=== PATIENT | female | born 1975 | race Caucasian/White ===

== ENCOUNTER 2025-04-16 16:35 | Emergency (ER) | payer SELFPAY ==
[2025-04-16 16:40] VITALS: BP 97/66; PULSE 108; RESP 22; TEMP 36.8; O2SAT 92; BMI 26.5
--- OUTSIDE RECORDS SUMMARY | 2025-04-16 16:42 | XMS_ITS | Clinical Summary ---
Author Organization [facility] Address [address] [place]: Epic Prelude ADT [place] [address] Care Team Providers Care Shank Scourer Name Role Phone Christiano Chandra MD Primary Care Provider [phone] Allergies Active Allergy Reactions Criticality Noted Date Comments Diphenhydramine-Zinc Acetate Other (See Comments) 04/29/2017 really messes me up Nsaids (Non-Steroidal Anti-Inflammatory Drug) Hives High 04/29/2017 Penicillins Anaphylaxis High 04/29/2017 Tramadol Other (See Comments) 04/16/2021 seizure Medications HYDROcodone-acetam inophen (NORCO) 5-325 mg tabletIndications: Cervical spondylosis with radiculopathy Take 1 Tablet by mouth every 6 hours as needed for Pain, Severe. Max Daily Amount: 4 Tablets 15 Tablet 1 Active orphenadrine (NORFLEX) 100 mg Extended Release tablet Take 1 Tablet (100 mg) by mouth 2 times daily as needed for Spasm. 20 Tablet 1 Active lidocaine (Lidoderm) 5 % Adhesive Patch, Medicated Apply 1 Patch to affected area every 24 hours. 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 ABSTRACTION Provider, Abstract from Last 3 Months Social History Tobacco Use Types Packs/Day Years Used Date Smoking Tobacco: Every Day Cigarettes Smokeless Tobacco: Never Alcohol Use Standard Drinks/Week Comments No 0 (1 standard drink = 0.6 oz pur e alcohol) Comments No Sex and Gender Information Value Date Recorded Sex Assigned at Not on file 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 Gender Identity Not on file Sexual Orientation Not on file Last Filed Vital Signs Vital Sign Reading Time Taken Comments Blood Pressure 98/72 08/01/2021 12:08 AM CDT Pulse 76 08/01/2021 12:08 AM CDT Temperature 36.8 C (98.3 F) 07/31/2021 9:52 PM CDT Respiratory Rate 26 08/01/2021 12:08 AM CDT Oxygen Saturation 98% 08/01/2021 12:08 AM CDT Inhaled Oxygen Concentration - - Weight 53.8 kg (118 lb 9.6 oz) 07/31/2021 9:52 P M CDT Height 160 cm (5' 3 ) 07/31/2021 9:52 PM CDT Body Mass Index 21.01 07/31/2021 9:52 PM CDT Plan of Treatment Health Maintenance Due Date Last Done Comments DTAP/TDAP/TD VACCINES (1 - Tdap) 09/27/1994 HEPATITIS B VACCINES (1 of 3 - 19+ 3-dose series) 09/15 HPV/Cotest (21-29) 09/27/1996 CERVICAL CANCER SCREENING 09/27/2005 HPV/Cotest (30-65) 09/27/2005 PAP SMEAR 09/27/2005 BREAST CANCER SCREENING 2015 COLORECTAL SCREENING 09/27/2020 Colorectal Cancer Screening 09/27/2020 FIT-DNA Q 3 years 09/27/2020 FIT/FOBT Q 1 year 09/27/2020 Flex Sig/CT Colonography Q 5 years 09/27/2020 INFLUENZA VACCINE (#1) 2024 Care Teams Shank Scourer Relationship Specialty Start Date End Date Christiano Chandra MD [address] [place] [address] [place] [address] PCP - General Family Practice 08/01/21
--- OUTSIDE RECORDS SUMMARY | 2025-04-16 16:42 | XMS_ITS ---
Patient Summary 2.1 Created on: April 16, 2025 KARLENE CABALLERO : 1975 Sex: Female Author Organization Unknown Address [address] [place], [place] [id number] Care Team Providers Care Sfdc Solution Architect Name Role Phone MOIRA Holt Attending [phone] VIOLA Morris Primary [phone] Results TROPONIN-HS,I-STAT - Collect Date/Time: 03/18/2025 09:58 [facility] ID: [id number] [address] [place] [address], [phone] LOINC: Test Value Unit Reference Range Code Code System I-STAT hs-Tnl < 2.9 ng/L L=3.0 H=13.0 URINALYSIS W/MICRO - Collect Date/Time: 03/18/2025 08:55 [facility] ID: [id number] [address] [place] [address], [phone] LOINC: Test Value Unit Reference Range Code Code System SPEC SOURCE: Clean Catch COLOR Yellow NORMAL: Straw 5778-6 LOINC CLARITY Hazy NORMAL: Clear 79649-0 LOINC SPEC GRAVITY 1.01 1.005 - 1.020 pH 7. 5.5 - 7.5 GLUCOSE Negative NORMAL: Negative BILIRUBIN Negative NORMAL: Negative 63698-7 JHONATAN NC KETONE Negative NORMAL: Negative PROTEIN Negative NORMAL: Negative NITRITE Positive NORMAL: Negative BLOOD Negative NORMAL: Negative LEUK EST 500 NORMAL: Negative UROBILINOGEN 0.2 0.2 - 1.0 mg/dL WBC 10 - 20 NORMAL: None Seen 5821-4 LO INC RBC None See NORMAL: None Seen 30663-1 LO INC EPITHELIAL See Belo NORMAL: None Seen 5787-7 L OINC SQUAMOUS EPI Mod/lpf NORMAL: None Seen 95241-2 LOINC RENAL EPI None Seen NORMAL: None Seen 79813-3 LO INC TRANS EPI None Seen NORMAL: None Seen 96432-0 LO INC BACTERIA 2+/hpf NORMAL: None Seen 5769-5 LO INC MUCOUS None See NORMAL: None Seen 13372-3 LO INC YEAST None Seen 5822-2 LOINC CASTS Not Indicate 9842-6 LOINC CRYSTALS Not Indicate 68695-4 LOINC D-DIMER QNT - Collect Date/T salomón: 03/18/2025 08:27 [facility] ID: [id number] [address] [facility], [place], [phone] LOINC: 94759-5 Test Value Unit Reference Range Code Code System D-DIMER QUANT 1800 mg/dL L=190 H=500 CBC W/AUTO DIFF - Collect Da te/Time: 03/18/2025 08:27 [facility] ID: [id number] [address] [place], [place], [phone] LOINC: 51148-6 Test Value Unit Reference Range Code Code System WBC 6.5 K/uL L=4.8 H=11.0 6690-2 LOINC RBC 4.6 M/uL L=3.9 H=5.6 789-8 LOINC HEMOGLOBIN 12.9 g/dL L=12.0 H=16.0 718-7 LOINC HEMATOCRIT 40.1 % L=36.0 H=46.0 4544-3 LOINC MCV 87 fL L=82 H=98 787-2 LOINC MCH 28.1 pg L=26.0 H=34.0 785-6 LOINC MCHC 32.3 g/dL L=32.0 H=36.0 786-4 LOINC RDW 13.4 % L=12.0 H=15.0 788-0 LOINC PLATELETS 500 K/uL L=150 H=400 777-3 LOINC %NEUT 62 % L=45 H=70 770-8 LOINC %LYMPH 32 % L=20 H=45 736-9 LOINC %MONO 6 % L=4 H=12 5905-5 LOINC #NEUT 4.2 K/uL L=2.0 H=7.7 751-8 LOINC #LYMPH 2.0 K/uL L=1.0 H=4.0 731-0 LOINC #MONO 0.3 K/uL L=0.2 H=0.9 742-7 LOINC COMPREHENSIVE METABOLIC PANE L - Collect Date/Time: 03/18/2025 08:27 [facility] ID: [id number] [address] [place] [address], [place], [phone] LOINC: 84308-8 Test Value Unit Reference Range Code Code System SODIUM 139 mmol/L L=136 H=145 2951-2 LOINC POTASSIUM 3.7 mmol/L L=3.6 H=5.2 2823-3 LOINC CHLORIDE 102 mmol/L L=100 H=108 2075-0 LOINC CO2 29 mmol/L L=21 H=32 1963-8 LOINC ANION GAP 12 L=7 H=15 31567-7 LOINC GLUCOSE 117 mmol/L L=70 H=110 2345-7 LOINC BUN 10 mg/dL L=7 H=18 3094-0 LOINC CREATININE 0.92 mg/dL L=0.60 H=1.30 2160-0 LOINC AGE 49 yrs BUN/CREAT 10.9 L=0.0 H=13.8 3097-3 LOINC TOTAL PROTEIN 7.5 g/dL L=6.2 H=8.4 2885-2 LOIN C ALBUMIN 3.3 g/dL L=3.4 H=5.0 1751-7 LOINC GLOBULIN 4 g/dL 88179-1 LOINC A/G RATIO 0.8 1759-0 LOINC CALCIUM 9.1 mg/dL L=8.1 H=9.7 92985-7 LOINC TOTAL BILI 0.2 mg/dL L=0.0 H=1.0 1975-2 LOINC ALKALINE PHOS 69 U/L L=46 H=116 6768-6 LOINC SGOT/AST 17 U/L L=15 H=37 1920-8 LOINC SGPT/ALT 17 U/L L=12 H=78 1742-6 LOINC OSMOLALITY 288 mOsm/kg L=275 H=295 NON-AA GFR 69 mL/min 06521-3 LOINC AFR AMER GFR 83 mL/min 10069-3 LOINC XR CHEST 2 VIEWS - Completed : 03/18/2025 20:46 LOINC: Please see scanned 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 Code Code System Body Mass Index 25.75 kg/m2 03/18/2025 08:13 Initial 60241 -5 LOINC Systolic Blood Pressure 115 mm[Hg] 03/18/2025 08:13 Initial 8480- 6 LOINC Diastolic Blood Pressure 70 mm[Hg] 03/18/2025 08:13 Initial 8462- 4 INC Body Surface Area 1.75 m2 03/18/2025 08:13 Initial 3140- 1 LOINC Height 162.560 0 cm 64.00 in 03/18/2025 08:13 Initial 8302- 2 INC O2 Saturation 95 % 2024 08:13 Initial 36392 -5 INC Pulse 103.0 /min 03/18/2025 08:13 Initial 8867- 4 LOINC Respiration 16 /min 03/18/20 08:13 Initial 9279- 1 LOINC Temperature 36.4 Yany 97.5 F 03/18/20 08:13 Initial 8310- 5 INC Weight 68.04 kg 150.00 lbs 03/18/2025 08:13 Initial 63070 -7 [facility] Medications Medication Start Date End Date Route Frequency Dose Code Code System Medication Instructions Orders ENOXAPARIN (LOVENOX) 40 MG (0.4 ML) INJ 03/18/2025 03/18/2025 SUBCUTANEOUS OPTIONS X1 40 MG 144075 RxNorm 40 MG SUBCUTANEOUS OPTIONS ONCE SODIUM CHLORIDE 0.9% IV GRISELDA 1000 ML 03/18/2025 03/18/2025 INTRAVENOUS X1 125 ml/hr 1174507 RxNorm 125 ml/hr INTRAVENOUS ONE TIME ~~~SODIUM CHLORIDE 0.9% IV GRISELDA 1000 ML 1000 ML RxNorm Home Meds Albuterol Sulfate HFA 0.09MG/1Actuation Inhalation Suspension 12/11/2024 Unknown INHALATION FOUR TIMES A DAY 1 PUFF 8161586 RxNorm 1 PUFF INHALATION FOUR TIMES A DAY FOR COPD EXACERBATION Assessment You had the following problems:SHORTNESS OF BREATHCHEST PAIN Hospital Discharge Instructions Should you have any questions prior to discharge, please contact a member of your healthcare team. If you have left the hospital and have any questions, please contact your primary care physician. Reason For Referral No Data Found Problems Problem Start Date Resolved Date Status Code Code System SHORTNESS OF BREATH active 325936259 SNOMED-CT CHEST PAIN active 64992106 SNOMED-CT Allergies Allergy Substance Reaction Severity Start Date Concern Status Co de Code System PCN (penicillin) Active 4843770 SNOMED- CT STEROID Active NSAID Active 01337809 SNOMED-CT DROPERIDOL Active 3648 RxNorm TRAMADOL Active 78468 RxNorm No Known Drug Allergies Active 986604756 SNOMED-CT Plan of Treatment No Data Found Encounters Encounter Diagnosis Start Date Code Code Sys tem Pulmonary embolism 03/18/2025 69752961 SNOMED-CT
--- OUTSIDE RECORDS SUMMARY | 2025-04-16 16:42 | XMS_ITS ---
Patient Summary 2.1 Created on: April 16, 2025 KARLENE CABALLERO : 1975 Sex: Female Author Organization Unknown Address [address] [place], [place] [id number] Care Team Providers Care J2Ee Developer Name Role Phone MOIRA Holt Attending [phone] NONE Primary [phone] Results CBC W/AUTO DIFF - Collect Da te/Time: 12/11/2024 10:12 [facility] ID: [id number] [address] [place], [place], [phone] LOINC: 63702-5 Test Value Unit Reference Range Code Code System WBC 6.8 K/uL L=4.8 H=11.0 6690-2 LOINC RBC 4.8 M/uL L=3.9 H=5.6 789-8 LOINC HEMOGLOBIN 13.9 g/dL L=12.0 H=16.0 718-7 LOINC HEMATOCRIT 41.5 % L=36.0 H=46.0 4544-3 LOINC MCV 87 fL L=82 H=98 787-2 LOINC MCH 28.9 pg L=26.0 H=34.0 785-6 LOINC MCHC 33.5 g/dL L=32.0 H=36.0 786-4 LOINC RDW 13.2 % L=12.0 H=15.0 788-0 LOINC PLATELETS 244 K/uL L=150 H=400 777-3 LOINC %NEUT 66 % L=45 H=70 770-8 LOINC %LYMPH 27 % L=20 H=45 736-9 LOINC %MONO 7 % L=4 H=12 5905-5 LOINC #NEUT 4.6 K/uL L=2.0 H=7.7 751-8 LOINC #LYMPH 1.8 K/uL L=1.0 H=4.0 731-0 LOINC #MONO 0.4 K/uL L=0.2 H=0.9 742-7 LOINC COMPREHENSIVE METABOLIC PANE L - Collect Date/Time: 12/11/2024 10:12 [facility] ID: [id number] [address] [facility] [place], [phone] LOINC: 50778-5 Test Value Unit Reference Range Code Code System SODIUM 137 mmol/L L=136 H=145 2951-2 LOINC POTASSIUM 3.2 mmol/L L=3.6 H=5.2 2823-3 LOINC CHLORIDE 101 mmol/L L=100 H=108 2075-0 LOINC CO2 23 mmol/L L=21 H=32 1963-8 LOINC ANION GAP 16 L=7 H=15 52917-0 LOINC GLUCOSE 113 mmol/L L=70 H=110 2345-7 LOINC BUN 12 mg/dL L=7 H=18 3094-0 LOINC CREATININE 0.92 mg/dL L=0.60 H=1.30 2160-0 LOINC AGE 49 yrs BUN/CREAT 13.0 L=0.0 H=13.8 3097-3 LOINC TOTAL PROTEIN 7.4 g/dL L=6.2 H=8.4 2885-2 LOIN C ALBUMIN 3.4 g/dL L=3.4 H=5.0 1751-7 LOINC GLOBULIN 4 g/dL 17043-1 LOINC A/G RATIO 0.9 1759-0 LOINC CALCIUM 9.0 mg/dL L=8.1 H=9.7 20456-8 LOINC TOTAL BILI 0.1 mg/dL L=0.0 H=1.0 1975-2 LOINC ALKALINE PHOS 90 U/L L=46 H=116 6768-6 LOINC SGOT/AST 23 U/L L=15 H=37 1920-8 LOINC SGPT/ALT 23 U/L L=12 H=78 1742-6 LOINC OSMOLALITY 285 mOsm/kg L=275 H=295 NON-AA GFR 69 mL/min 89507-7 LOINC AFR AMER GFR 83 mL/min 48995-2 LOINC TROPONIN - Collect Date/Time : 12/11/2024 10:12 [facility] ID: [id number] [address] [place] [address] [place], [phone] LOINC: Test Value Unit Reference Range Code Code System TROPONIN I < 0.05 ng/mL L=0.00 H=0.06 22791-[address] THORAX WO/C - Completed: 12/11/2024 15:12 LOINC: Please see scanned in radiol ogy probate clerk.Dictating Initials: RF Transcribe Date: 12/12/24 08:12Transcribe Initials: KW Social History Type Status Start Date End Date Code Code Syst em Smoking History Current every day smoker 060865545 SNOMED-CT Vital Signs Vital Sign Value Unit [place] Value [place] Unit Date/Time Recent/Initial? Code Code System Body Mass Index 26.57 kg/m2 12/11/2024 09:10 Initial 27060 -5 LOINC Systolic Blood Pressure 116 mm[Hg] 12/11/2024 09:10 Initial 8480- 6 LOINC Diastolic Blood Pressure 67 mm[Hg] 12/11/2024 09:10 Initial 8462- 4 LOINC Body Surface Area 1.74 m2 12/11/2024 09:10 Initial 3140- 1 LOINC Height 160.020 0 cm 63.00 in 12/11/2024 09:10 Initial 8302- 2 LOINC O2 Saturation 98 % 2024 09:10 Initial 16434 -5 LOINC Pulse 124.0 /min 12/11/2024 09:10 Initial 8867- 4 LOINC Respiration 18 /min 12/12/19 09:10 Initial 9279- 1 LOINC Temperature 36.9 Yany 98.4 F 12/12/19 09:10 Initial 8310- 5 LOINC Weight 68.04 kg 150.00 lbs 12/11/2024 09:10 Initial 96481 -7 LOINC Medications Medication Start Date End Date Route Frequency Dose Code Code System Medication Instructions Home Meds Albuterol Sulfate HFA 0.09MG/1Actuation Inhalation Suspension 12/11/2024 Unknown INHALATION FOUR TIMES A DAY 1 PUFF 3137512 RxNorm 1 PUFF INHALATION FOUR TIMES A [...] Code Code System SHORTNESS OF BREATH active 437909823 SNOMED-CT CHEST PAIN active 99132353 SNOMED-CT Allergies Allergy Substance Reaction Severity Start Date Concern Status Co de Code System PCN (penicillin) Active 0567368 SNOMED- CT STEROID Active NSAID Active 37160850 SNOMED-CT DROPERIDOL Active 3648 RxNorm TRAMADOL Active 06983 RxNorm No Known Drug Allergies Active 611631337 SNOMED-CT Plan of Treatment No Data Found Encounters Encounter Diagnosis Start Date Code Code Sys tem Unspecified lump in the left breast, unspecified quadr ant 12/11/2024 SNOMED-CT
--- NOTE | 2025-04-16 16:44 | ECG_ITS ---
[facility]25[facility]16 Pat Name: Maame Green Department: Room: Gender: Female Process Improvement Manager: : 1975 Requested By: Sathya Frye Order Number: [id number] Yousif MD: Vianca Luevano M.D. Measurements Intervals [place] Rate: 104 P: 84 ID: [id number] QRS: 76 QRSD: 79 T: 90 QT: 332 QTc: 438 Interpretive Statements SINUS TACHYCARDIA NONSPECIFIC T-WAVE ABNORMALITY ABNORMAL RHYTHM ECG No previous ECG available for comparison Electronically Signed On 04-18-2025 20:10:55 DISTRIBUTION WAREHOUSE MANAGER by Vianca Luevano M.D. [email or web address]
--- NOTE | 2025-04-16 16:49 | XRR_ITS ---
PROCEDURE INFORMATION: Exam: XR Chest Exam date and time: 04/16/2025 5:04 PM Age: 49 years old Clinical indication: Shortness of breath; Prior surgery; Surgery date: <1 month; Surgery type: Port-a-cath; Left sided chest wall pain, nausea, vomiting, short of breath. Recent breast cancer diagnosis with mets. ; Additional info: SOB TECHNIQUE: Imaging protocol: Radiologic exam of the chest. Views: 1 view. COMPARISON: No relevant prior studies available. FINDINGS: Tubes, catheters and devices: Right chest port terminates at the SVC. Lungs: Relative lucency of the right hemithorax compared to the left. Pleural spaces: Unremarkable. No pleural effusion. No pneumothorax. Heart/Mediastinum: Unremarkable. No cardiomegaly. Bones/joints: Unremarkable. XR/XR chest 1V portable 50512 IMPRESSION: Hyperlucent right hemithorax. Differential is broad to include technical factors, chest wall abnormalities, asymmetric emphysema or other lung disease, possibly oligemia in the setting of PE. Consider further evaluation with chest CTA.
[2025-04-16 17:30] VITALS: BP 99/67; PULSE 83; O2SAT 91
--- NOTE | 2025-04-16 17:40 | ED_ITS ---
HPI - Chest Pain 2 General: Chief Complaint: Chest Pain Stated Complaint: cp, sob, had port in 4 days ago, n/v Time Seen by Provider: 04/16/25 17:22 History of Present Illness: Patient is a 49-year-old female with stage 3 triple negative breast cancer who presents with severe left axillary pain and breast pain described as 'like a knife going in' with radiation to the chest. Symptoms have been present all day and are unrelieved by ice, heat, or pain medications including Tylenol and her regular pain medications. She reports associated chest pain, shortness of breath, and vomiting (3-[address] to the hospital). Patient had a port placed on Thursday (3 days ago) and was seen in the ER on Thursday (1 day ago) for shortness of breath and port pain. At that time, she reports elevated D-dimer levels, but imaging did not reveal a blood clot. Today, the port is not painful, but she continues to have severe axillary pain and shortness of breath. She denies fever or cough. She is currently receiving cancer treatment in [place] but has not started chemotherapy. Related Data Previous Rx's ?Medication ?Instructions ?Recorded doxycycline hyclate 100 mg tablet 100 mg PO BID 7 days #14 tabs 04/16/25 Allergies Allergy/AdvReac Type Severity Reaction Status Date / Time gabapentin Allergy Unknown Verified 04/16/25 16:50 morphine Allergy Unknown Verified 04/16/25 16:50 NSAIDS (Non-Steroidal Allergy Unknown Verified 04/16/25 16:50 Anti-Inflamma Penicillins Allergy ALGY-Anaphy Verified 04/16/25 16:50 laxis tramadol Allergy Unknown Verified 04/16/25 16:50 Physical Exam 2 Const: GENERAL APPEARANCE: cooperative, anxious and ill appearing; not frail appearing HENMT: COMMON NORMALS: normocephalic, atraumatic and Normal external nose present HEAD & SCALP: normocephalic and atraumatic FACE & SINUS: normal facial exam and face symmetric NOSE: Normal external nose present Eye: COMMON NORMALS: Equal, round and reactive pupils present and EOMs intact bilaterally PUPIL: Yes Equal, round and reactive pupils present Neck/C-Spine: GENERAL: Yes trachea midline Chest: CHEST: Yes Symmetrical chest wall rise BREAST/AXILLA PALPATION: Yes abnormal palpation of the breast (hard, red, warm) and Yes axillary lymphadenopathy (large ) Details: central (deep) adenopathy Resp: COMMON NORMALS: normal respiratory effort, No retractions, No use of accessory muscles and clear to auscultation bilaterally AUSCULTATION: clear to auscultation bilaterally Cardio: COMMON NORMALS: regular rate and regular rhythm RATE: regular rate RHYTHM: regular rhythm GI: COMMON NORMALS: Normal to inspection, nondistended, normoactive bowel sounds present Extremity: COMMON NORMALS: no pedal edema Neuro: JUSTIN COMA SCALE: document GCS findings Justin coma scale eye opening: Spontaneous [place] coma scale verbal response: Orientated [place] coma scale motor response: Obey commands Justin coma scale total score: 15 S ENSORY EXAM: Yes extremities (intact) Psych: COMMON NORMALS: speech normal SPEECH: Yes normal speech Skin: COMMON NORMALS: no rashes or lesions noted GENERAL SKIN EXAM: no rashes or lesions noted Course 2 Vital Signs: Vital signs: Vital Signs Temperature 98.2 F 04/16/25 16:40 Pulse Rate 81 04/16/25 21:20 Respiratory Rate 22 H 04/16/25 16:40 Blood Pressure 94/64 04/16/25 21:20 Pulse Oximetry 95 04/16/25 21:20 Oxygen Delivery Me thod Room Air 04/16/25 16:40 MDM - Chest Pain Medical Decision Making 49-year-old female with a history of breast cancer. She has a very tender, indurated, hard left breast. She is experiencing left sided pain into her axilla. She had a CTA 2 days ago that was negative for PE. Her chest x-ray does not show any left sided abnormalities. Her CRP is 10. Her ESR is 22. Lactic Acid 1.5. troponin is undetectable. Her white blood cell count is 11. This is likely inflammatory mass status in the setting of left sided breast cancer . Cellulitis cannot be ruled out. He was treated with Vancomycin here. She will go home on Doxycycline. She is supposed to see her oncologist in the morning for potential chemotherapy. Further treatment will be deferred to them in the absence of any sepsis markers here. She knows she can return for any return of symptoms. Duragesic patch was placed on the patient for better pain control. She may still take her Oxycodone for breakthrough pain. Lab Data 04/16/25 18:15 04/16/25 18:15 Radiology Impressions Chest X-Ray 04/16/25 16:49 IMPRESSION: Hyperlucent right hemithorax. Differential is broad to include technical factors, chest wall abnormalities, asymmetric emphysema or other lung disease, possibly oligemia in the setting of PE. Consider further evaluation with chest CTA. Laboratory Results WBC 11.12 10^3/uL (3.29-11.43) 04/16/25 18:15 RBC 4.47 10^6/uL (3.85-5.65) 04/16/25 18:15 Hgb 12.00 g/dL (11.27-16.99) 04/16/25 18:15 Hct 38.3 % (36-47) 04/16/25 18:15 MCV 85.7 fl (85-98) 04/16/25 18:15 MCH 26.8 pg (27-33) L 04/16/25 18:15 MCHC 31.3 g/dL (30-55) 04/16/25 18:15 RDW 13.0 % (12.1-15.1) 04/16/25 18:15 Plt Count 448 10^3/cmm (157-399) H 04/16/25 18:15 MPV 9.3 fL (7.4-10.4) 04/16/25 18:15 Neut % (Auto) 74.6 % 04/16/25 18:15 Lymph % (Auto) 15.3 % 04/16/25 18:15 Cook % (Auto) 7.6 % 04/16/25 18:15 Eos % (Auto) 1.7 % 04/16/25 18:15 Baso % (Auto) 0.4 % 04/16/25 18:15 Neut # (Auto) 8.30 10^3/uL (1.8-7.7) H 04/16/25 18:15 Lymph # (Auto) 1.7 10^3/uL (0.8-4.8) 04/16/25 18:15 Cook # (Auto) 0.8 10^3/uL (0.2-0.9) 04/16/25 18:15 Eos # (Auto) 0.2 10^3/uL (0.0-0.8) 04/16/25 18:15 Baso # (Auto) 0.1 10^3/uL (0.0-0.1) 04/16/25 18:15 Nucleated RBC % (auto) 0 % 04/16/25 18:15 Nucleated RBCs # 0.0 /100WBC 04/16/25 18:15 ESR 22 mm/hr (0-15) H 04/16/25 18:15 PT 12.30 SECONDS (12.1-14.9) 04/16/25 18:15 INR 0.86 (0.8-1.2) 04/16/25 18:15 Sodium 141 mmol/L (136-145) 04/16/25 18:15 Potassium 4.6 mmol/L (3.5-5.1) 04/16/25 18:15 Chloride 104 mmol/L (98-107) 04/16/25 18:15 Carbon Dioxide 28 mmol/L (22-29) 04/16/25 18:15 Anion Gap 13.6 (5-19) 04/16/25 18:15 BUN 7 mg/dL (6-20) 04/16/25 18:15 Creatinine 0.7 mg/dL (0.5-0.9) 04/16/25 18:15 GFR Calculation 88.9 mL/min (90-130) L 04/16/25 18:15 Glucose 108 mg/dL (65-115) 04/16/25 18:15 Calculated Osmolality 291 mOsm/kg (285-295) 04/16/25 18:15 Lactic Acid 1.5 mmol/L (0.5-2.2) 04/16/25 18:15 Calcium 9.3 mg/dL (8.5-10.5) 04/16/25 18:15 Total Bilirubin 0.2 mg/dL (0.15-1.2) 04/16/25 18:15 AST 15 U/L (0-32) 04/16/25 18:15 ALT 13 U/L (0-33) 04/16/25 18:15 Alkaline Phosphatase 78 U/L (35-105) 04/16/25 18:15 Troponin T Baseline < 6 ng/L (0-10) 04/16/25 18:15 C-Reactive Protein 10.4 mg/L (0.0-4.9) H 04/16/25 18:15 Total Protein 6.3 g/dL (6.6-8.7) L 04/16/25 18:15 Albumin 3.9 g/dL (3.5-5.2) 04/16/25 18:15 Globulin 2.4 g/dL (1.3-4.6) 04/16/25 18:15 Lipase 12 U/L (13-60) L 04/16/25 18:15 All radiology interpretation(s) finalized by discharge EKG Data EKG 1: Interpretation: EKG time: 1644 Read 1649 Sinus tach 100 Normal axis. QTc 438. Intervals normal No ST changes. Discharge Plan Discharge Patient Disposition: Home Clinical Impression: Mastitis, Breast cancer Condition: Stable Prescriptions: New doxycycline hyclate 100 mg tablet 100 mg PO BID 7 Days Qty: 14 0RF Discharge Orders: Discharge ED (Routine); Ordered 04/16/25 Ordered By: Howard Vivar Patient Instructions: Mastitis (ED), Opioid Safety, Pain Management, Patient Portal & [place] Instructions Activity Restrictions/Additional Instructions: Antibiotic coverage as directed. Wear your Durogesic patch for the next 3 days. This should provide some baseline pain control. You may continue to take your oxycodone as needed for breakthrough pain. Return for problems. Follow-up with your oncologist as scheduled tomorrow. Print Language: Hungarian Coding Level of Care Code ED Legal Compliance Officer for [facility] Heart Score HEART Score Components History: Slightly Suspicous EKG: Normal Age: 45-64 yrs Risk Factors: No Risk Factors Known Troponin: Baseline Trop <16 ng/L HEART Score RESULT HEART Score: 1
[2025-04-16] MEDS: ondansetron 2 mg/ML SDV 2 mL 4 MG IVP (18:21)
[2025-04-16] MEDS: HYDROmorphone 0.5 MG/0.5 ML INJ 1 MG IVP (18:23)
[2025-04-16 18:24] LABS: Hematocrit 38.3 % (36-47); Hemoglobin 12.00 g/dL (11.27-16.99); Mean Corpuscular HGB Conc 31.3 g/dL (30-55); Mean Corpuscular Hemoglobin 26.8 pg (27-33); Mean Corpuscular Volume 85.7 fl (85-98); Nucleated Red Blood Cells % 0 %; Platelet Count 448 10^3/cmm (157-399); Red Blood Count 4.47 10^6/uL (3.85-5.65); White Blood Count 11.12 10^3/uL (3.29-11.43)
[2025-04-16 18:30] VITALS: BP 110/84; PULSE 94; O2SAT 86
[2025-04-16 18:44] LABS: INR 0.86 (0.8-1.2); Prothrombin Time 12.30 SECONDS (12.1-14.9)
[2025-04-16 18:49] LABS: Troponin(5th) Baseline < 6 ng/L (0-10)
[2025-04-16 18:51] LABS: Alanine Aminotransferase 13 U/L (0-33); Albumin Level 3.9 g/dL (3.5-5.2); Alkaline Phosphatase 78 U/L (35-105); Anion Gap 13.6 (5-19); Aspartate Amino Transferase 15 U/L (0-32); Blood Urea Nitrogen 7 mg/dL (6-20); Calcium 9.3 mg/dL (8.5-10.5); Carbon Dioxide 28 mmol/L (22-29); Chloride 104 mmol/L (98-107); Globulin 2.4 g/dL (1.3-4.6); Glucose 108 mg/dL (65-115); Lipase 12 U/L (13-60); Osmolality Calculated 291 mOsm/kg (285-295); Potassium 4.6 mmol/L (3.5-5.1); Sodium 141 mmol/L (136-145); Total Protein 6.3 g/dL (6.6-8.7)
[2025-04-16 18:52] LABS: Lactic Sepsis W/Reflex 1.5 mmol/L (0.5-2.2)
--- NOTE | 2025-04-16 19:00 | PC.NURSE ---
after admin of dilaudid, supplemental o2 applied.
[2025-04-16] MEDS: diphenhydrAMINE 50 mg/mL SDV 1mL 12.5 MG IVP (19:51)
[2025-04-16 19:55] VITALS: BP 92/65; PULSE 81; O2SAT 97
[2025-04-16 20:27] VITALS: BP 109/70
[2025-04-16 21:20] VITALS: BP 94/64; PULSE 81; O2SAT 95
== END 2025-04-16 21:53 | disposition home or self-care (01) ==
PROVIDERS: Emergency Medicine; Emergency Provider Emergency Medicine
DX: N61.0 Mastitis without abscess (principal); C50.912 Malignant neoplasm of unspecified site of left female breast
CPT/HCPCS: 71045; 80053; 83605; 83690; 84484; 85025; 85610; 85651; 86140; 87040; 93005; 96365; 96366; 96375; 99285; J1171; J1200; J2405; J3373; J7050; J9999